=== PATIENT | male | born 1980 | race Hispanic/Latino ===

== ENCOUNTER 2017-07-20 13:39 | Inpatient (IN) | payer BC ==
[2017-07-20] MEDS ORDERED: Sodium Chloride 0.9% 1,000 ML IV ONE ×5 (14:21→23:15)
[2017-07-20] MEDS ORDERED: Sodium Chloride 0.9% 1,000 ML ONE ×2 (14:28→16:52)
[2017-07-20] MEDS ORDERED: Morphine 4 MG/ML VIAL ONE (14:29)
[2017-07-20 14:59] LABS: BASO % 0.3 % (0.0-2.0); EOS % 0.2 % (0.0-4.0); LYMPH # 0.8 K/uL (1.0-4.3); LYMPH % 5.9 % (20.0-40.0); MEAN CELL VOLUME 90.5 fL (80.0-94.0); MEAN CORPUSCULAR HGB CONC 35.4 g/dL (33.0-37.0); MEAN PLATELET VOLUME 7.9 fL (7.2-11.7); MONO # 1.2 K/uL (0.0-0.8); MONO % 8.7 % (0.0-10.0); NEUT # 11.6 K/uL (1.8-7.0); NEUT % 84.9 % (50.0-75.0); PLATELET COUNT 257 K/uL (130-400); RBC 4.69 Mil/uL (4.40-5.90); RED CELL DISTRIBUTION WIDTH 13.5 % (11.5-14.5); WHITE BLOOD COUNT 13.7 K/uL (4.8-10.8)
[2017-07-20 15:12] LABS: ALB/GLOB RATIO 1.4 (1.0-2.1); ALBUMIN 4.5 g/dL (3.5-5.0); ALT/SGPT 22 U/L (21-72); AST/SGOT 19 U/L (17-59); BLOOD UREA NITROGEN 9 mg/dL (9-20); CALCIUM 9.5 mg/dl (8.6-10.4); GFR AFRICAN-AMERICAN > 60; GFR NON-AFRICAN AMERICAN > 60; LIPASE 35 U/L (23-300)
[2017-07-20 15:20] LABS: LYMPHOCYTE 7 % (20-40); MONOCYTE 11 % (0-10); NEUTROPHIL 82 % (50-75); TOTAL CELLS COUNTED 100
[2017-07-20 15:21] LABS: PLATELET ESTIMATE NORMAL (NORMAL)
[2017-07-20] MEDS ORDERED: Iodixanol 320 MG/ML 100 ML BOTTLE IV ONE ×2 (15:23→17:20)
--- NOTE | 2017-07-20 15:57 | C.PDOC ---
History Of Present Illness 37-year-old male presents to the emergency department with complaints of nausea , associated with non-bloody/non-bilious vomiting and diarrhea since . Patient is also complaining of chills and pressure in his pelvis when he urinates. He denies any unusual food intake, sick contacts, chest pain, shortness of breath, dysuria/hematuria, or any other associated symptoms. Last food intake was night, and today he had some ice chips but vomited them in ED. Time Seen by Provider: 07/20/17 13:55 Chief Complaint (Nursing): Abdominal Pain History Per: Patient History/Exam Limitations: no limitations Current Symptoms Are (Timing): Still Present Severity: Moderate Location Of Pain/Discomfort: RLQ, Periumbilical (right ) Radiation Of Pain To:: Back Quality Of Discomfort: "Pain" Associated Symptoms: Chills, Nausea, Vomiting, Diarrhea Past Medical History Reviewed: Historical Data, Nursing Documentation, Vital Signs Vital Signs: Last Vital Signs Temp 97.5 F L 07/21/17 14:50 Pulse 112 H 07/21/17 14:50 Resp 22 07/21/17 14:50 BP 134/76 07/21/17 14:50 Pulse Ox 94 L 07/21/17 14:50 - Medical History PMH: No Chronic Diseases Other PMH: right foot fx Family History: States: No Known Family Hx - Social History Hx Alcohol Use: Yes Hx Substance Use: Yes - Immunization History Hx Tetanus Toxoid Vaccination: No Hx Influenza Vaccination: No Hx Pneumococcal Vaccination: No Review Of Systems Constitutional: Positive for: Chills. Negative for: Fever Cardiovascular: Negative for: Chest Pain, Palpitations Respiratory: Negative for: Shortness of Breath Gastrointestinal: Positive for: Nausea, Vomiting, Abdominal Pain, Diarrhea Genitourinary: Negative for: Dysuria, Hematuria Musculoskeletal: Negative for: Back Pain Skin: Negative for: Rash Physical Exam - Physical Exam Appears: Well, Non-toxic, In Acute Distress (uncomfortable appearing ) Skin: Normal Color, Warm, Dry, No Rash Head: Normacephalic Eye(s): bilateral: Normal Inspection Oral Mucosa: Moist Chest: Symmetrical Cardiovascular: Rhythm Regular, No Murmur Respiratory: Normal Breath Sounds, No Rales, No Rhonchi, No Wheezing Gastrointestinal/Abdominal: Bowel Sounds, Soft, Tenderness (right periumbilical and RLQ TTP), Guarding, No Rebound, Other ((-) Nuñez's) Back: No CVA Tenderness Extremity: Normal ROM, No Deformity, No Swelling Neurological/Psych: Oriented x3 ED Course And Treatment - Laboratory Results Result Diagrams: 07/21/17 06:11 07/21/17 06:12 ECG: Interpreted By Me, Viewed By Me (sinus tachycardia 102 bpm, normal axis, no acute ST/T wave changes) O2 Sat by Pulse Oximetry: 99 (RA) Pulse Ox Interpretation: Normal - Radiology CXR: Interpreted by Me, Viewed By Me CXR Interpretation: Yes: No Acute Disease. No: Infiltrates - CT Scan/US ct abd/pelvis Other Rad Studies (CT/US): Read By Radiologist, Radiology Report Reviewed CT/US Interpretation: Accession No. : [id number]. Patient Name / ID : JAYASHREE SANDERSON / [id number]. Exam Date : 07/20/2017 15:50:37 ( Approved ). Study Comment : Sex / Age : M / 37Y. Creator : charlee chairez. Dictator : Emelyn Phillips MD. Radioisotope Technician : Tugboat Operator : Emelyn Phillips MD. Approver2 : Report Date : 07/20/2017 15:59:06. My Comment : . PROCEDURE: CT Abdomen and Pelvis with contrast. HISTORY: rlq pain,nausea/ vomiting/diarrhea. COMPARISON: None. TECHNIQUE: Contrast dose: 100 mL Visipaque 320. Axial and reformatted coronal and sagittal CT images holes the abdomen and pelvis were obtained after IV and PO contrast. Radiation dose: Total exam DLP = 1562.6 mGy-cm. This CT exam was performed using one or more of the following dose reduction techniques: Automated exposure control, adjustment of the mA and/or kV according to patient size, and/or use of iterative reconstruction technique. FINDINGS: LOWER THORAX: Unremarkable. LIVER: Unremarkable. No gross lesion or ductal dilatation. GALLBLADDER AND BILE DUCTS: Unremarkable. PANCREAS: Unremarkable. No gross lesion or ductal dilatation. SPLEEN: Unremarkable. ADRENALS: Unremarkable. No mass. KIDNEYS AND URETERS: There is 6 millimeter nonobstructing calculus at the upper pole of the right kidney. No evidence of hydronephrosis. The kidneys enhance symmetrically. VASCULATURE: Unremarkable. No aortic aneurysm. BOWEL: Unremarkable. No obstruction. No gross mural thickening. APPENDIX: There are inflammatory changes surrounding the dilated appendix suggestive of acute appendicitis. There is adjacent trace fluid seen. No evidence of discrete abscess formation. PERITONEUM: Unremarkable. No free fluid. No free air. LYMPH NODES: Mildly enlarged mesenteric lymph node noted at the right lower abdomen. BLADDER: Unremarkable. REPRODUCTIVE: Unremarkable. BONES: No acute fracture. OTHER FINDINGS: None. IMPRESSION: Findings consistent with acute appendicitis. No evidence of abscess formation. Otherwise no evidence of acute pathology in the abdomen and pelvis. 6 millimeter nonobstructing calculus at the upper pole of the right kidney. Progress Note: Blood work, CT Abd/Pel, UA ordered and reviewed. Patient given IVNS bolus, IV morphine, IV zofran, IV protonix. CT scan (+) for acute appendicitis - IV zosyn + preop studies ordered. 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 residential builder made aware. Disposition - Disposition Disposition: HOSPITALIZED Disposition Time: 16:54 Condition: STABLE - Clinical Impression Clinical Impression: Acute appendicitis - Scribe Statement The provider has reviewed the documentation as recorded by the Scribe (Eugene Braga) All medical record entries made by the Scribe were at my direction and personally dictated by me. I have reviewed the chart and agree that the record accurately reflects my personal performance of the history, physical exam, medical decision making, and the department course for this patient. I have also personally directed, reviewed, and agree with the discharge instructions and disposition. Decision To Admit - Pt Status Changed To: Hospital Disposition Of: Inpatient - Admit Certification Admit to Inpatient:: After my assessment, the patient will require hospitalization for at least two midnights. This is because of the severity of symptoms shown, intensity of services needed, and/or the medical risk in this patient being treated as an outpatient. - InPatient: Physician Admission Certification:: see notes - . Bed Request Type: Regular Admitting Physician: Carolyn Hernandez Patient Diagnosis: Acute appendicitis
--- NOTE | 2017-07-20 16:28 | CT ---
PROCEDURE: CT Abdomen and Pelvis with contrast HISTORY: rlq pain,nausea/vomiting/diarrhea COMPARISON: None. TECHNIQUE: Contrast dose: 100 mL Visipaque 320. Axial and reformatted coronal and sagittal CT images holes the abdomen and pelvis were obtained after IV and PO contrast. Radiation dose: Total exam DLP = 1562.6 mGy-cm. This CT exam was performed using one or more of the following dose reduction techniques: Automated exposure control, adjustment of the mA and/or kV according to patient size, and/or use of iterative reconstruction technique. FINDINGS: LOWER THORAX: Unremarkable. LIVER: Unremarkable. No gross lesion or ductal dilatation. GALLBLADDER AND BILE DUCTS: Unremarkable. PANCREAS: Unremarkable. No gross lesion or ductal dilatation. SPLEEN: Unremarkable. ADRENALS: Unremarkable. No mass. KIDNEYS AND URETERS: There is 6 millimeter nonobstructing calculus at the upper pole of the right kidney. No evidence of hydronephrosis. The kidneys enhance symmetrically. VASCULATURE: Unremarkable. No aortic aneurysm. BOWEL: Unremarkable. No obstruction. No gross mural thickening. APPENDIX: There are inflammatory changes surrounding the dilated appendix suggestive of acute appendicitis. There is adjacent trace fluid seen. No evidence of discrete abscess formation. PERITONEUM: Unremarkable. No free fluid. No free air. LYMPH NODES: Mildly enlarged mesenteric lymph node noted at the right lower abdomen BLADDER: Unremarkable. REPRODUCTIVE: Unremarkable. BONES: No acute fracture. OTHER FINDINGS: None. IMPRESSION: Findings consistent with acute appendicitis. No evidence of abscess formation. Otherwise no evidence of acute pathology in the abdomen and pelvis. 6 millimeter nonobstructing calculus at the upper pole of the right kidney.
[2017-07-20] MEDS ORDERED: Piperacillin/Tazobact 3.375 gm 100 ML IV STA (16:46)
[2017-07-20] MEDS ORDERED: Piperacillin/Tazobact 3.375 gm 100 ML IVPB ONE (16:52)
--- NOTE | 2017-07-20 17:37 | CP.PCM.CON ---
History of Present Illness - History of Present Illness History of Present Illness: SURGERY CONSULT NOTE FOR DR. NUNEZ 37M presents to ER with abdominal that has been on going since . Patient states he has never had pain like this before. He admits to nausea and vomiting, states he has not been able to tolerated diet since . He denies fevers or chills. He also admits to diarrhea on . PMH: denies PSH: denies Social: quit 4 months ago, social alcohol use, denies illicit drugs Allergies: NKDA Past Patient History - Past Social History Smoking Status: Former Smoker - PSYCHIATRIC Hx Substance Use: Yes - SURGICAL HISTORY Hx Surgeries: No Meds Allergies/Adverse Reactions: Allergies Allergy/AdvReac Type Severity Reaction Status Date / Time No Known Allergies Allergy Verified 07/20/17 13:54 Results - Vital Signs Recent Vital Signs: Last Vital Signs Temp 98.3 F 07/20/17 15:07 Pulse 98 H 07/20/17 15:07 Resp 18 07/20/17 15:07 BP 94/64 L 07/20/17 15:07 Pulse Ox 99 07/20/17 17:03 - Labs Result Diagrams: 07/20/17 14:54 07/20/17 14:54 Labs: Laboratory Results - last 24 hr 07/20/17 07/20/17 14:54 14:54 WBC 13.7 H RBC 4.69 Hgb 15.0 Hct 42.4 MCV 90.5 MCH 32.0 H MCHC 35.4 RDW 13.5 Plt Count 257 MPV 7.9 Neut % (Auto) 84.9 H Lymph % (Auto) 5.9 L [place] % (Auto) 8.7 Eos % (Auto) 0.2 Baso % (Auto) 0.3 Neut # (Auto) 11.6 H Lymph # (Auto) 0.8 L [place] # (Auto) 1.2 H Eos # (Auto) 0.0 Baso # (Auto) 0.0 Neutrophils % (Manual) 82 H Lymphocytes % (Manual) 7 L Monocytes % (Manual) 11 H Platelet Estimate Normal RBC Morphology Normal Sodium 136 Potassium 3.8 Chloride 92 L Carbon Dioxide 30 Anion Gap 18 BUN 9 Creatinine 1.1 Est GFR ( Amer) > 60 Est GFR (Non-Af Amer) > 60 Random Glucose 128 H Calcium 9.5 Total Bilirubin 2.5 H AST 19 ALT 22 Alkaline Phosphatase 66 Total Protein 7.8 Albumin 4.5 Globulin 3.3 Albumin/Globulin Ratio 1.4 Lipase 35
--- NOTE | 2017-07-20 17:40 | CP.PCM.HP ---
History of Present Illness - History of Present Illness History of Present Illness: SURGERY NOTE FOR DR. NUNEZ 37M presents to ER with abdominal that has been on going since . Patient states he has never had pain like this before. He admits to nausea and vomiting, states he has not been able to tolerated diet since . He denies fevers or chills. He also admits to diarrhea on . PMH: denies PSH: denies Social: quit 4 months ago, social alcohol use, denies illicit drugs Allergies: NKDA Present on Admission - Present on Admission Any Indicators Present on Admission: Yes Past Patient History - Past Social History Smoking Status: Former Smoker - PSYCHIATRIC Hx Substance Use: Yes - SURGICAL HISTORY Hx Surgeries: No Meds Allergies/Adverse Reactions: Allergies Allergy/AdvReac Type Severity Reaction Status Date / Time No Known Allergies Allergy Verified 07/20/17 13:54 Physical Exam - Constitutional Appears: Non-toxic, No Acute Distress Additional comments: uncomfortable due to pain - Head Exam Head Exam: ATRAUMATIC - Eye Exam Eye Exam: EOMI, PERRL - ENT Exam ENT Exam: Mucous Membranes Moist - Respiratory Exam Respiratory Exam: Clear to Auscultation Bilateral, NORMAL BREATHING PATTERN - Cardiovascular Exam Cardiovascular Exam: REGULAR RHYTHM, +S1, +S2 - GI/Abdominal Exam GI & Abdominal Exam: Soft, Tenderness. absent: Distended, Firm, Guarding, Rebound, Rigid Additional comments: tenderness in RLQ - Extremities Exam Extremities exam: Negative for: pedal edema, tenderness - Neurological Exam Neurological exam: Alert, Oriented x3 - Psychiatric Exam Psychiatric exam: Normal Affect, Normal Mood - Skin Skin Exam: Dry, Intact, Normal Color, Warm Results - Vital Signs Recent Vital Signs: Last Vital Signs Temp 98.3 F 07/20/17 15:07 Pulse 98 H 07/20/17 15:07 Resp 18 07/20/17 15:07 BP 94/64 L 07/20/17 15:07 Pulse Ox 99 07/20/17 17:03 - Labs Result Diagrams: 07/20/17 14:54 07/20/17 14:54 Labs: Laboratory Results - last 24 hr 07/20/17 07/20/17 14:54 14:54 WBC 13.7 H RBC 4.69 Hgb 15.0 Hct 42.4 MCV 90.5 MCH 32.0 H MCHC 35.4 RDW 13.5 Plt Count 257 MPV 7.9 Neut % (Auto) 84.9 H Lymph % (Auto) 5.9 L [place] % (Auto) 8.7 Eos % (Auto) 0.2 Baso % (Auto) 0.3 Neut # (Auto) 11.6 H Lymph # (Auto) 0.8 L [place] # (Auto) 1.2 H Eos # (Auto) 0.0 Baso # (Auto) 0.0 Neutrophils % (Manual) 82 H Lymphocytes % (Manual) 7 L Monocytes % (Manual) 11 H Platelet Estimate Normal RBC Morphology Normal Sodium 136 Potassium 3.8 Chloride 92 L Carbon Dioxide 30 Anion Gap 18 BUN 9 Creatinine 1.1 Est GFR ( Amer) > 60 Est GFR (Non-Af Amer) > 60 Random Glucose 128 H Calcium 9.5 Total Bilirubin 2.5 H AST 19 ALT 22 Alkaline Phosphatase 66 Total Protein 7.8 Albumin 4.5 Globulin 3.3 Albumin/Globulin Ratio 1.4 Lipase 35 Assessment & Plan - Assessment and Plan (Free Text) Assessment: 37M presents with appendicitis as seen on CT scan Plan: - NPO, IVF - Pain control - anti-emetic - antibiotics - Booked and consented for appendectomy Discussed with Dr. David Faulkner, PGY2
[2017-07-20 17:41] LABS: INR 1.4; PROTHROMBIN TIME 15.2 SECONDS (9.7-12.2)
[2017-07-20 18:31] LABS: SQUAMOUS EPITHIAL 1 /hpf (0-5); URINE BACTERIA RARE (<OCC); URINE BILIRUBIN NEGATIVE (NEGATIVE); URINE BLOOD 1+ (NEGATIVE); URINE CLARITY Clear (Clear); URINE COLOR Amber (YELLOW); URINE GLUCOSE (UA) NORMAL (Normal); URINE LEUKOCYTE ESTERASE NEG Leu/uL (Negative); URINE PROTEIN 1+ mg/dL (NEGATIVE)
[2017-07-20] MEDS: Sodium Chloride 0.9% 1,000 ML IV SCH (18:47)
[2017-07-20] MEDS: Piperacillin/Tazobact 3.375 GM in Sodium Chloride 100 ML IVPB SCH ×2 (18:48→23:45)
[2017-07-20] MEDS ORDERED: HYDROmorphone 0.5 mg/0.5 ml ISec IVP PRN (20:52)
--- NOTE | 2017-07-20 20:55 | PCM.SURG1 ---
Surgeon's Initial Post Op Note - Surgeon's Notes Surgeon: David Front Office Secretary: Kaushik Pre-Operative Diagnosis: Acute appendicitis Operative Findings: gangrenous rupture appendix Post-Operative Diagnosis: Gangrenous ruptured acute appendicitis Operation Performed: Laparoscopic appendectomy Specimen/Specimens Removed: appendix Estimated Blood Loss: EBL {In ML}: 20 Date of Surgery/Procedure: 07/20/17 Time of Surgery/Procedure: 19:00
[2017-07-20 22:04] LABS: HEMOGLOBIN 11.5 g/dL (12.0-18.0); MEAN CELL VOLUME 91.6 fL (80.0-94.0); MEAN CORPUSCULAR HEMOGLOBIN 30.8 pg (27.0-31.0); MEAN CORPUSCULAR HGB CONC 33.6 g/dL (33.0-37.0); MEAN PLATELET VOLUME 8.1 fL (7.2-11.7); RBC 3.74 Mil/uL (4.40-5.90); RED CELL DISTRIBUTION WIDTH 13.4 % (11.5-14.5); WHITE BLOOD COUNT 14.5 K/uL (4.8-10.8)
[2017-07-20] MEDS ORDERED: Albumin Human 25% (12.5 gm/50 ml) IV ONE (23:29)
[2017-07-21] MEDS ORDERED: Propofol 10 mg/ml Inj (20 ML) ONE (00:12)
[2017-07-21] MEDS ORDERED: Succinylcholine Chloride 20 mg/ml Syr (5 ml) IV ONE (00:12)
[2017-07-21] MEDS ORDERED: Midazolam 2 MG/2 ML VIAL ONE (00:12)
[2017-07-21] MEDS ORDERED: Rocuronium 10 mg/ml (5 ml) ONE (00:14)
--- NOTE | 2017-07-21 00:18 | CP.PCM.PN ---
Subjective - Date & Time of Evaluation Date of Evaluation: 07/21/17 Time of Evaluation: 00:16 - Subjective Subjective: SURGERY NOTE 37M s/p laperaoscopic appendectomy. Currently in PACU. Patient is pale, diaphoretic and states he feels cold. Drain has been having bright red blood output up to 200-300cc. Hypotensive lowest 50s systolic. Patient received 2L bolus without much improvement. Currently receiving 2 units of pRBCs. Plan to return to OR now for diag lap/ex-lap. Family notified. Objective - Vital Signs/Intake and Output Vital Signs (last 24 hours): Temp Pulse Resp BP Pulse Ox 97.2 F L 87 15 90/56 L 100 07/20/17 23:45 07/20/17 23:45 07/20/17 23:45 07/20/17 23:45 07/20/17 23:45 Intake and Output: 07/20/17 07/21/17 18:59 06:59 Intake Total 1350 Output Total 150 Balance 1200 - Medications Medications: Current Medications Hydromorphone HCl (Dilaudid) 1 mg IVP Q4H PRN PRN Reason: Pain, severe (8-10) Piperacillin Sod/Tazobactam (Sod 3.375 gm/ Sodium Chloride) 100 mls @ 200 mls/ hr IVPB Q6H PARESH PRN Reason: Protocol Last Admin: 07/20/17 18:48 Dose: Not Given Sodium Chloride (Sodium Chloride 0.9%) 1,000 mls @ 150 mls/hr IV .Q6H40M [facility] Last Admin: 07/20/17 18:47 Dose: 150 mls/hr Ondansetron HCl (Zofran Inj) 4 mg IVP Q4 PRN PRN Reason: Nausea/Vomiting - Labs Labs: 07/20/17 22:00 07/20/17 14:54 PT 15.2 SECONDS (9.7-12.2) H 07/20/17 17:29 INR 1.4 07/20/17 17:29 APTT 29 SECONDS (21-34) 07/20/17 17:29
[2017-07-21] MEDS ORDERED: Phenylephrine 10 mg/ml Inj ONE (00:46)
[2017-07-21] MEDS ORDERED: Neostigmine Methylsulfate 3mg/3ml Syringe IV ONE (01:37)
--- NOTE | 2017-07-21 02:26 | CP.PCM.CON ---
History of Present Illness - History of Present Illness History of Present Illness: 37 M with c/o 3 day abd pain came to ER found to have acute appendicitis, taken to OR for lap appendicectomy, had post op bleeding, noticed form the KAMAR about 250m, with abd distension, hypotension. Patient was started PRBC x2 units, 2 lit ivf, albumin 25g, cristobal inserted and taken to the OR. Post op d/w surgery team, about 500ml of old blood noticed no fresh bleeding. VS remained stable in OR, urine scant sulaiman color but maintained vital signs. Patient lethargic but easily arousable. PMH as above PSH none Allergies NKDA Social history quit smoking, social drinking, denies any illicit durgs Family history not contributory Meds none Review of Systems - Review of Systems All systems: reviewed and no additional remarkable complaints except (HPI) Past Patient History - Past Social History Smoking Status: Former Smoker - PSYCHIATRIC Hx Substance Use: Yes - SURGICAL HISTORY Hx Surgeries: No Meds Allergies/Adverse Reactions: Allergies Allergy/AdvReac Type Severity Reaction Status Date / Time No Known Allergies Allergy Verified 07/20/17 13:54 - Medications Medications: Current Medications Hydromorphone HCl (Dilaudid) 1 mg IVP Q4H PRN PRN Reason: Pain, severe (8-10) Piperacillin Sod/Tazobactam (Sod 3.375 gm/ Sodium Chloride) 100 mls @ 200 mls/ hr IVPB Q6H PARESH PRN Reason: Protocol Last Admin: 07/20/17 18:48 Dose: Not Given Sodium Chloride (Sodium Chloride 0.9%) 1,000 mls @ 150 mls/hr IV .Q6H40M [facility] Last Admin: 07/20/17 18:47 Dose: 150 mls/hr Ondansetron HCl (Zofran Inj) 4 mg IVP Q4 PRN PRN Reason: Nausea/Vomiting Physical Exam - Additional Findings Additional findings: * Obese * HEENT YOKASTA * Neck short * Chest a/e/bl * PA obese, soft, has binder, port sites taped * Ext no edema * Skin normal turor * 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, 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 Results - Vital Signs Recent Vital Signs: Last Vital Signs Temp 97.2 F L 07/20/17 23:45 Pulse 91 H 07/21/17 00:00 Resp 11 L 07/21/17 00:00 BP 100/48 L 07/21/17 00:00 Pulse Ox 100 07/21/17 00:00 - Labs Result Diagrams: 07/20/17 22:00 07/20/17 14:54 Labs: Laboratory Results - last 24 hr 07/20/17 07/20/17 07/20/17 14:54 14:54 17:29 WBC 13.7 H RBC 4.69 Hgb 15.0 Hct 42.4 MCV 90.5 MCH 32.0 H MCHC 35.4 RDW 13.5 Plt Count 257 MPV 7.9 Neut % (Auto) 84.9 H Lymph % (Auto) 5.9 L [place] % (Auto) 8.7 Eos % (Auto) 0.2 Baso % (Auto) 0.3 Neut # (Auto) 11.6 H Lymph # (Auto) 0.8 L [place] # (Auto) 1.2 H Eos # (Auto) 0.0 Baso # (Auto) 0.0 Neutrophils % (Manual) 82 H Lymphocytes % (Manual) 7 L Monocytes % (Manual) 11 H Platelet Estimate Normal RBC Morphology Normal PT 15.2 H INR 1.4 APTT 29 Sodium 136 Potassium 3.8 Chloride 92 L Carbon Dioxide 30 Anion Gap 18 BUN 9 Creatinine 1.1 Est GFR ( Amer) > 60 Est GFR (Non-Af Amer) > 60 Random Glucose 128 H Calcium 9.5 Total Bilirubin 2.5 H AST 19 ALT 22 Alkaline Phosphatase 66 Total Protein 7.8 Albumin 4.5 Globulin 3.3 Albumin/Globulin Ratio 1.4 Lipase 35 Urine Color Urine Clarity Urine pH Ur Specific [place] Urine Protein Urine Glucose (UA) Urine Ketones Urine Blood Urine Nitrate Urine Bilirubin Urine Urobilinogen Ur Leukocyte Esterase Urine WBC (Auto) Urine RBC (Auto) Ur Squamous Epith Cells Urine Bacteria Blood Type Blood Type Confirm Antibody Screen 07/20/17 07/20/17 07/20/17 17:29 18:13 22:00 WBC 14.5 H RBC 3.74 L Hgb 11.5 L D Hct 34.2 L MCV 91.6 MCH 30.8 MCHC 33.6 RDW 13.4 Plt Count 259 MPV 8.1 Neut % (Auto) Lymph % (Auto) [place] % (Auto) Eos % (Auto) Baso % (Auto) Neut # (Auto) Lymph # (Auto) [place] # (Auto) Eos # (Auto) Baso # (Auto) Neutrophils % (Manual) Lymphocytes % (Manual) Monocytes % (Manual) Platelet Estimate RBC Morphology PT INR APTT Sodium Potassium Chloride Carbon Dioxide Anion Gap BUN Creatinine Est GFR ( Amer) Est GFR (Non-Af Amer) Random Glucose Calcium Total Bilirubin AST ALT Alkaline Phosphatase Total Protein Albumin Globulin Albumin/Globulin Ratio Lipase Urine Color [place] Urine Clarity Clear Urine pH 6.0 Ur Specific [place] 1.010 Urine Protein 1+ H Urine Glucose (UA) Normal Urine Ketones Negative Urine Blood 1+ H Urine Nitrate Negative Urine Bilirubin Negative Urine Urobilinogen 4.0 Ur Leukocyte Esterase Neg Urine WBC (Auto) 5 Urine RBC (Auto) 16 H Ur Squamous Epith Cells 1 Urine Bacteria Rare Blood Type A POSITIVE Blood Type Confirm A POSITIVE Antibody Screen Negative Assessment & Plan - Assessment and Plan (Free Text) Assessment: * Urgent surg for ruptured appendicitis, complicated with post op bleeding, with revision ex lap about 500ml blood inside, and 250 form KAMAR. Transfused 2 units prbc, albumin 2 lit ivf, still pending 2 units ffp and will have maintenance fluid * Monitor urine output * SCD for DVT prophylaxis * PPI * Abx due to ruptured appendix * f/u labs Plan: As above
--- NOTE | 2017-07-21 02:31 | PCM.SURG1 ---
Surgeon's Initial Post Op Note - Surgeon's Notes Surgeon: David Senior Project Manager Engineering: [email or web address] [id number] Pre-Operative Diagnosis: Post-op bleed Operative Findings: Hemoperitoneum Post-Operative Diagnosis: same Operation Performed: Diagnostic laparoscopy, evacuation of hematoma Specimen/Specimens Removed: blood Estimated Blood Loss: EBL {In ML}: 500 Date of Surgery/Procedure: 07/21/17 Time of Surgery/Procedure: 00:05
[2017-07-21] MEDS: Sodium Chloride 0.9% 1,000 ML IV SCH ×4 (03:00→20:29)
[2017-07-21] MEDS: Piperacillin/Tazobact 3.375 GM in Sodium Chloride 100 ML IVPB SCH ×4 (06:00→22:57)
[2017-07-21] MEDS: HYDROmorphone 1 mg/ml ISec IVP PRN ×4 (06:23→21:27)
[2017-07-21 06:33] LABS: BASO % 0.2 % (0.0-2.0); LYMPH # 0.4 K/uL (1.0-4.3); LYMPH % 3.8 % (20.0-40.0); MEAN CELL VOLUME 90.8 fL (80.0-94.0); MEAN CORPUSCULAR HGB CONC 34.2 g/dL (33.0-37.0); MEAN PLATELET VOLUME 8.3 fL (7.2-11.7); MONO # 1.2 K/uL (0.0-0.8); MONO % 11.2 % (0.0-10.0); NEUT % 84.8 % (50.0-75.0); PLATELET COUNT 201 K/uL (130-400); RBC 3.54 Mil/uL (4.40-5.90); RED CELL DISTRIBUTION WIDTH 13.9 % (11.5-14.5); WHITE BLOOD COUNT 10.6 K/uL (4.8-10.8)
[2017-07-21 06:35] LABS: ALB/GLOB RATIO 1.2 (1.0-2.1); ALBUMIN 3.2 g/dL (3.5-5.0); ALT/SGPT 25 U/L (21-72); AST/SGOT 17 U/L (17-59); BLOOD UREA NITROGEN 12 mg/dL (9-20); CALCIUM 7.6 mg/dl (8.6-10.4); GFR AFRICAN-AMERICAN > 60; GFR NON-AFRICAN AMERICAN > 60
--- NOTE | 2017-07-21 08:02 | RAD ---
Chest x-ray single frontal view History: Preoperative evaluation. Comparison: None available. Findings: Mild venous congestion. Elevated right hemidiaphragm. Mammilated right hemidiaphragm. Tortuous aorta. Degenerative changes in the spine. Impression: Mild venous congestion. Elevated right hemidiaphragm. Mammilated right hemidiaphragm. Tortuous aorta.
[2017-07-21 08:09] LABS: BANDS 5 % (0-2); LYMPHOCYTE 2 % (20-40); MONOCYTE 7 % (0-10); NEUTROPHIL 86 % (50-75); PLATELET ESTIMATE NORMAL (NORMAL); TOTAL CELLS COUNTED 100
--- NOTE | 2017-07-21 08:13 | CP.CCUPN ---
<Rula Stewart - Last Filed: 07/21/17 11:07> CCU Subjective - Physician Review Subjective (Free Text): Patient was seen and examined at bedside. Patient reports his pain is still present and he feels very anxious. Denied passing flatus or BM. Diet advanced to FLD. CCU Objective - Vital Signs / Intake & Output Vital Signs (Last 4 hours): Vital Signs Pulse Resp BP Pulse Ox 07/21/17 06:00 100 H 22 106/71 100 07/21/17 05:30 102 H 22 120/82 99 07/21/17 05:00 100 H 22 105/87 99 07/21/17 04:30 100 H 22 108/65 98 Intake and Output (Last 8hrs): Intake & Output 07/20/17 07/21/17 07/21/17 22:59 06:59 14:59 Intake Total 2000 1940 Output Total 800 400 Balance 1200 1540 Weight 281 lb 6 oz Intake: IV 2000 550 Intake, IV Amount 550 Right Hand 550 Oral 240 Blood Product 600 Output: Drainage 800 Urine 400 Other: Voiding Method Indwelling Catheter - Physical Exam Head: Positive for: Atraumatic, Normocephalic Pupils: Positive for: PERRL Extroacular Muscles: Positive for: EOMI Conjunctiva: Positive for: Normal Mouth: Positive for: Dry Respiratory/Chest: Positive for: Clear to Auscultation, Decreased Breath Sounds Cardiovascular: Positive for: Tachycardic Abdomen: Positive for: Tenderness, Distention, Other (abdominal binder in place ) Upper Extremity: Positive for: Normal Inspection, NORMAL PULSES, Neurovascularly Intact, Capillary Refill < 2s Lower Extremity: Positive for: Normal Inspection, Neurovascularly Intact, Capillary Refill < 2 s Neurological: Positive for: GCS=15, CN II-XII Intact Skin: Positive for: Warm, Dry, Normal Color Psychiatric: Positive for: Alert, Oriented x 3, Normal Insight - Medications Active Medications: Active Medications Generic Name Dose Route Start Last Admin Trade Name Freq PRN Reason Stop Dose Admin Hydromorphone HCl 1 mg 07/20/17 17:41 07/21/17 06:23 Dilaudid IVP 1 mg Q4H PRN Administration Pain, severe (8-10) Piperacillin Sod/Tazobactam 100 mls @ 200 mls/hr 07/20/17 17:45 07/21/17 06: 00 Sod 3.375 gm/ Sodium Chloride IVPB 200 mls/hr Q6H PARESH Administration Protocol Sodium Chloride 1,000 mls @ 150 mls/hr 07/20/17 17:45 07/21/17 03:00 Sodium Chloride 0.9% IV 150 mls/hr .Q6H40M PARESH Administration Magnesium Oxide 400 mg 07/21/17 10:00 Mag-Ox PO 07/21/17 18:01 BID PARESH Ondansetron HCl 4 mg 07/20/17 17:41 Zofran Inj IVP Q4 PRN Nausea/Vomiting Pantoprazole Sodium 40 mg 07/21/17 10:00 Protonix Inj IVP DAILY PARESH - Patient Studies Lab Studies: Lab Studies 07/21/17 07/21/17 07/21/17 Range/Units 06:12 06:12 06:11 WBC 10.6 (4.8-10.8) K/uL RBC 3.54 L (4.40-5.90) Mil/uL Hgb 11.0 L (12.0-18.0) g/dL Hct 32.2 L (35.0-51.0) % MCV 90.8 (80.0-94.0) fL MCH 31.0 (27.0-31.0) pg MCHC 34.2 (33.0-37.0) g/dL RDW 13.9 (11.5-14.5) % Plt Count 201 (130-400) K/uL MPV 8.3 (7.2-11.7) fL Neut % (Auto) 84.8 H (50.0-75.0) % Lymph % (Auto) 3.8 L (20.0-40.0) % [place] % (Auto) 11.2 H (0.0-10.0) % Eos % (Auto) 0.0 (0.0-4.0) % Baso % (Auto) 0.2 (0.0-2.0) % Neut # (Auto) 9.0 H (1.8-7.0) K/uL Lymph # (Auto) 0.4 L (1.0-4.3) K/uL [place] # (Auto) 1.2 H (0.0-0.8) K/uL Eos # (Auto) 0.0 (0.0-0.7) K/uL Baso # (Auto) 0.0 (0.0-0.2) K/uL Neutrophils % (Manual) 86 H (50-75) % Band Neutrophils % 5 H (0-2) % Lymphocytes % (Manual) 2 L (20-40) % Monocytes % (Manual) 7 (0-10) % Platelet Estimate Normal (NORMAL) RBC Morphology Normal PT (9.7-12.2) SECONDS INR APTT (21-34) SECONDS Sodium 135 (132-148) mmol/L Potassium 4.0 (3.6-5.2) mmol/L Chloride 99 (98-107) mmol/L Carbon Dioxide 25 (22-30) mmol/L Anion Gap 15 (10-20) BUN 12 (9-20) mg/dL Creatinine 1.0 (0.8-1.5) mg/dL Est GFR ( Amer) > 60 Est GFR (Non-Af Amer) > 60 Random Glucose 167 H (75-110) mg/dL Calcium 7.6 L (8.6-10.4) mg/dl Phosphorus 3.0 (2.5-4.5) mg/dL Magnesium 1.5 L (1.6-2.3) mg/dL Total Bilirubin 7.4 H (0.2-1.3) mg/dL AST 17 (17-59) U/L ALT 25 (21-72) U/L Alkaline Phosphatase 40 (38-126) U/L Total Protein 6.0 L (6.3-8.3) g/dL Albumin 3.2 L D (3.5-5.0) g/dL Globulin 2.7 (2.2-3.9) gm/dL Albumin/Globulin Ratio 1.2 (1.0-2.1) Lipase (23-300) U/L Urine Color (YELLOW) Urine Clarity (Clear) Urine pH (5.0-8.0) Ur Specific [place] (1.003-1.030) Urine Protein (NEGATIVE) mg/dL Urine Glucose (UA) (Normal) mg/dL Urine Ketones (NEGATIVE) mg/dL Urine Blood (NEGATIVE) Urine Nitrate (NEGATIVE) Urine Bilirubin (NEGATIVE) Urine Urobilinogen (0.2-1.0) mg/dL Ur Leukocyte Esterase (Negative) Tabatha/uL Urine WBC (Auto) (0-5) /hpf Urine RBC (Auto) (0-3) /hpf Ur Squamous Epith Cells (0-5) /hpf Urine Bacteria (<OCC) Blood Type Blood Type Confirm Antibody Screen 07/20/17 07/20/17 07/20/17 Range/Units 22:00 18:13 17:29 WBC 14.5 H (4.8-10.8) K/uL RBC 3.74 L (4.40-5.90) Mil/uL Hgb 11.5 L D (12.0-18.0) g/dL Hct 34.2 L (35.0-51.0) % MCV 91.6 (80.0-94.0) fL MCH 30.8 (27.0-31.0) pg MCHC 33.6 (33.0-37.0) g/dL RDW 13.4 (11.5-14.5) % Plt Count 259 (130-400) K/uL MPV 8.1 (7.2-11.7) fL Neut % (Auto) (50.0-75.0) % Lymph % (Auto) (20.0-40.0) % [place] % (Auto) (0.0-10.0) % Eos % (Auto) (0.0-4.0) % Baso % (Auto) (0.0-2.0) % Neut # (Auto) (1.8-7.0) K/uL Lymph # (Auto) (1.0-4.3) K/uL [place] # (Auto) (0.0-0.8) K/uL Eos # (Auto) (0.0-0.7) K/uL Baso # (Auto) (0.0-0.2) K/uL Neutrophils % (Manual) (50-75) % Band Neutrophils % (0-2) % Lymphocytes % (Manual) (20-40) % Monocytes % (Manual) (0-10) % Platelet Estimate (NORMAL) RBC Morphology PT (9.7-12.2) SECONDS INR APTT (21-34) SECONDS Sodium (132-148) mmol/L Potassium (3.6-5.2) mmol/L Chloride (98-107) mmol/L Carbon Dioxide (22-30) mmol/L Anion Gap (10-20) BUN (9-20) mg/dL Creatinine (0.8-1.5) mg/dL Est GFR ( Amer) Est GFR (Non-Af Amer) Random Glucose (75-110) mg/dL Calcium (8.6-10.4) mg/dl Phosphorus (2.5-4.5) mg/dL Magnesium (1.6-2.3) mg/dL Total Bilirubin (0.2-1.3) mg/dL AST (17-59) U/L ALT (21-72) U/L Alkaline Phosphatase (38-126) U/L Total Protein (6.3-8.3) g/dL Albumin (3.5-5.0) g/dL Globulin (2.2-3.9) gm/dL Albumin/Globulin Ratio (1.0-2.1) Lipase (23-300) U/L Urine Color Allie (YELLOW) Urine Clarity Clear (Clear) Urine pH 6.0 (5.0-8.0) Ur Specific [place] 1.010 (1.003-1.030) Urine Protein 1+ H (NEGATIVE) mg/dL Urine Glucose (UA) Normal (Normal) mg/dL Urine Ketones Negative (NEGATIVE) mg/dL Urine Blood 1+ H (NEGATIVE) Urine Nitrate Negative (NEGATIVE) Urine Bilirubin Negative (NEGATIVE) Urine Urobilinogen 4.0 (0.2-1.0) mg/dL Ur Leukocyte Esterase Neg (Negative) Tabatha/uL Urine WBC (Auto) 5 (0-5) /hpf Urine RBC (Auto) 16 H (0-3) /hpf Ur Squamous Epith Cells 1 (0-5) /hpf Urine Bacteria Rare (<OCC) Blood Type A POSITIVE Blood Type Confirm A POSITIVE Antibody Screen Negative 07/20/17 07/20/17 07/20/17 Range/Units 17:29 14:54 14:54 WBC 13.7 H (4.8-10.8) K/uL RBC 4.69 (4.40-5.90) Mil/uL Hgb 15.0 (12.0-18.0) g/dL Hct 42.4 (35.0-51.0) % MCV 90.5 (80.0-94.0) fL MCH 32.0 H (27.0-31.0) pg MCHC 35.4 (33.0-37.0) g/dL RDW 13.5 (11.5-14.5) % Plt Count 257 (130-400) K/uL MPV 7.9 (7.2-11.7) fL Neut % (Auto) 84.9 H (50.0-75.0) % Lymph % (Auto) 5.9 L (20.0-40.0) % [place] % (Auto) 8.7 (0.0-10.0) % Eos % (Auto) 0.2 (0.0-4.0) % Baso % (Auto) 0.3 (0.0-2.0) % Neut # (Auto) 11.6 H (1.8-7.0) K/uL Lymph # (Auto) 0.8 L (1.0-4.3) K/uL [place] # (Auto) 1.2 H (0.0-0.8) K/uL Eos # (Auto) 0.0 (0.0-0.7) K/uL Baso # (Auto) 0.0 (0.0-0.2) K/uL Neutrophils % (Manual) 82 H (50-75) % Band Neutrophils % (0-2) % Lymphocytes % (Manual) 7 L (20-40) % Monocytes % (Manual) 11 H (0-10) % Platelet Estimate Normal (NORMAL) RBC Morphology Normal PT 15.2 H (9.7-12.2) SECONDS INR 1.4 APTT 29 (21-34) SECONDS Sodium 136 (132-148) mmol/L Potassium 3.8 (3.6-5.2) mmol/L Chloride 92 L (98-107) mmol/L Carbon Dioxide 30 (22-30) mmol/L Anion Gap 18 (10-20) BUN 9 (9-20) mg/dL Creatinine 1.1 (0.8-1.5) mg/dL Est GFR ( Amer) > 60 Est GFR (Non-Af Amer) > 60 Random Glucose 128 H (75-110) mg/dL Calcium 9.5 (8.6-10.4) mg/dl Phosphorus (2.5-4.5) mg/dL Magnesium (1.6-2.3) mg/dL Total Bilirubin 2.5 H (0.2-1.3) mg/dL AST 19 (17-59) U/L ALT 22 (21-72) U/L Alkaline Phosphatase 66 (38-126) U/L Total Protein 7.8 (6.3-8.3) g/dL Albumin 4.5 (3.5-5.0) g/dL Globulin 3.3 (2.2-3.9) gm/dL Albumin/Globulin Ratio 1.4 (1.0-2.1) Lipase 35 (23-300) U/L Urine Color (YELLOW) Urine Clarity (Clear) Urine pH (5.0-8.0) Ur Specific [place] (1.003-1.030) Urine Protein (NEGATIVE) mg/dL Urine Glucose (UA) (Normal) mg/dL Urine Ketones (NEGATIVE) mg/dL Urine Blood (NEGATIVE) Urine Nitrate (NEGATIVE) Urine Bilirubin (NEGATIVE) Urine Urobilinogen (0.2-1.0) mg/dL Ur Leukocyte Esterase (Negative) Tabatha/uL Urine WBC (Auto) (0-5) /hpf Urine RBC (Auto) (0-3) /hpf Ur Squamous Epith Cells (0-5) /hpf Urine Bacteria (<OCC) Blood Type Blood Type Confirm Antibody Screen Laboratory Results - last 24 hr 07/20/17 07/20/17 07/20/17 14:54 14:54 17:29 WBC 13.7 H RBC 4.69 Hgb 15.0 Hct 42.4 MCV 90.5 MCH 32.0 H MCHC 35.4 RDW 13.5 Plt Count 257 MPV 7.9 Neut % (Auto) 84.9 H Lymph % (Auto) 5.9 L [place] % (Auto) 8.7 Eos % (Auto) 0.2 Baso % (Auto) 0.3 Neut # (Auto) 11.6 H Lymph # (Auto) 0.8 L [place] # (Auto) 1.2 H Eos # (Auto) 0.0 Baso # (Auto) 0.0 Neutrophils % (Manual) 82 H Band Neutrophils % Lymphocytes % (Manual) 7 L Monocytes % (Manual) 11 H Platelet Estimate Normal RBC Morphology Normal PT 15.2 H INR 1.4 APTT 29 Sodium 136 Potassium 3.8 Chloride 92 L Carbon Dioxide 30 Anion Gap 18 BUN 9 Creatinine 1.1 Est GFR ( Amer) > 60 Est GFR (Non-Af Amer) > 60 Random Glucose 128 H Calcium 9.5 Phosphorus Magnesium Total Bilirubin 2.5 H AST 19 ALT 22 Alkaline Phosphatase 66 Total Protein 7.8 Albumin 4.5 Globulin 3.3 Albumin/Globulin Ratio 1.4 Lipase 35 Urine Color Urine Clarity Urine pH Ur Specific [place] Urine Protein Urine Glucose (UA) Urine Ketones Urine Blood Urine Nitrate Urine Bilirubin Urine Urobilinogen Ur Leukocyte Esterase Urine WBC (Auto) Urine RBC (Auto) Ur Squamous Epith Cells Urine Bacteria Blood Type Blood Type Confirm Antibody Screen 07/20/17 07/20/17 07/20/17 17:29 18:13 22:00 WBC 14.5 H RBC 3.74 L Hgb 11.5 L D Hct 34.2 L MCV 91.6 MCH 30.8 MCHC 33.6 RDW 13.4 Plt Count 259 MPV 8.1 Neut % (Auto) Lymph % (Auto) [place] % (Auto) Eos % (Auto) Baso % (Auto) Neut # (Auto) Lymph # (Auto) [place] # (Auto) Eos # (Auto) Baso # (Auto) Neutrophils % (Manual) Band Neutrophils % Lymphocytes % (Manual) Monocytes % (Manual) Platelet Estimate RBC Morphology PT INR APTT Sodium Potassium Chloride Carbon Dioxide Anion Gap BUN Creatinine Est GFR ( Amer) Est GFR (Non-Af Amer) Random Glucose Calcium Phosphorus Magnesium Total Bilirubin AST ALT Alkaline Phosphatase Total Protein Albumin Globulin Albumin/Globulin Ratio Lipase Urine Color Allie Urine Clarity Clear Urine pH 6.0 Ur Specific [place] 1.010 Urine Protein 1+ H Urine Glucose (UA) Normal Urine Ketones Negative Urine Blood 1+ H Urine Nitrate Negative Urine Bilirubin Negative Urine Urobilinogen 4.0 Ur Leukocyte Esterase Neg Urine WBC (Auto) 5 Urine RBC (Auto) 16 H Ur Squamous Epith Cells 1 Urine Bacteria Rare Blood Type A POSITIVE Blood Type Confirm A POSITIVE Antibody Screen Negative 07/21/17 07/21/17 07/21/17 06:11 06:12 06:12 WBC 10.6 RBC 3.54 L Hgb 11.0 L Hct 32.2 L MCV 90.8 MCH 31.0 MCHC 34.2 RDW 13.9 Plt Count 201 MPV 8.3 Neut % (Auto) 84.8 H Lymph % (Auto) 3.8 L [place] % (Auto) 11.2 H Eos % (Auto) 0.0 Baso % (Auto) 0.2 Neut # (Auto) 9.0 H Lymph # (Auto) 0.4 L [place] # (Auto) 1.2 H Eos # (Auto) 0.0 Baso # (Auto) 0.0 Neutrophils % (Manual) 86 H Band Neutrophils % 5 H Lymphocytes % (Manual) 2 L Monocytes % (Manual) 7 Platelet Estimate Normal RBC Morphology Normal PT INR APTT Sodium 135 Potassium 4.0 Chloride 99 Carbon Dioxide 25 Anion Gap 15 BUN 12 Creatinine 1.0 Est GFR ( Amer) > 60 Est GFR (Non-Af Amer) > 60 Random Glucose 167 H Calcium 7.6 L Phosphorus 3.0 Magnesium 1.5 L Total Bilirubin 7.4 H AST 17 ALT 25 Alkaline Phosphatase 40 Total Protein 6.0 L Albumin 3.2 L D Globulin 2.7 Albumin/Globulin Ratio 1.2 Lipase Urine Color Urine Clarity Urine pH Ur Specific [place] Urine Protein Urine Glucose (UA) Urine Ketones Urine Blood Urine Nitrate Urine Bilirubin Urine Urobilinogen Ur Leukocyte Esterase Urine WBC (Auto) Urine RBC (Auto) Ur Squamous Epith Cells Urine Bacteria Blood Type Blood Type Confirm Antibody Screen EKG/Cardiology Studies: Cardiology / EKG Studies 07/20/17 16:45 ELECTROCARDIOGRAM Stat Comment: HW1 Mode Of Transportation: BED Reason For Exam: PREOP 07/20/17 23:45 EKG [ELECTROCARDIOGRAM] Stat Comment: Mode Of Transportation: Reason For Exam: chest pain s/p OR Critical Care Progress Note - Nutrition Nutrition: Nutrition Category Date Time Status Liquid Diet [DIET] Diets 07/21/17 Breakfast Active Assessment/Plan - Assessment and Plan (Free Text) Assessment: This is a 37 year old male with no significant PMHx who presented with n/v/d and abdominal pain found to have gangrenous ruptured acute appendicitis s/p lap appy 07/20. Immediately post op patient went into shock became hypotensive, KAMAR drain had 2-300 CC BRB. He was given 2L bolus and transfused total 2 PRBCs and 2FFP. He was brought back to OR for diagnostic/exploratory ex lap- evacuation of hematoma on 07/21/17. Plan: Gangrenous ruptured acute appendicitis s/p lap appy 07/20 S/P diagnostic/exploratory lap- evacuation of hematoma on 07/21/17 - Continue IVF, Zosyn, pain management, ATAD Morbid Obesity - Counselled on diet, exercise, and weight loss Disposition: Patient transferred to Med/ Surg. DW Rula Negron DO, PGY-1 <Doug Galvin - Last Filed: 07/21/17 19:11> CCU Objective - Vital Signs / Intake & Output Vital Signs (Last 4 hours): Vital Signs Temp Pulse Resp BP Pulse Ox 07/21/17 18:07 98.6 F 115 H 20 120/78 96 07/21/17 15:51 99 07/21/17 15:33 98.2 F 117 H 22 108/69 90 L Intake and Output (Last 8hrs): Intake & Output 07/21/17 07/21/17 07/21/17 06:59 14:59 22:59 Intake Total 1940 950 Output Total 400 400 Balance 1540 550 Weight 281 lb 6 oz Intake: IV 550 Intake, IV Amount 550 750 Right Hand 550 750 Oral 240 200 Blood Product 600 Output: Urine 400 400 Urethral (Reeves) 400 Other: Voiding Method Indwelling Catheter - Medications Active Medications: Active Medications Generic Name Dose Route Start Last Admin Trade Name Freq PRN Reason Stop Dose Admin Docusate Sodium 100 mg 07/21/17 10:00 07/21/17 17:56 Colace PO 100 mg TID PARESH Administration Hydromorphone HCl 1 mg 07/20/17 17:41 07/21/17 16:55 Dilaudid IVP 1 mg Q4H PRN Administration Pain, severe (8-10) Piperacillin Sod/Tazobactam 100 mls @ 200 mls/hr 07/20/17 17:45 07/21/17 17: 22 Sod 3.375 gm/ Sodium Chloride IVPB 200 mls/hr Q6H PARESH Administration Protocol Sodium Chloride 1,000 mls @ 150 mls/hr 07/20/17 17:45 07/21/17 14:23 Sodium Chloride 0.9% IV 150 mls/hr .Q6H40M PARESH Administration Lactated Ringer's 1,000 mls @ 999 mls/hr 07/21/17 18:28 07/21/17 18:46 Lactated Ringer's IV 07/21/17 19:28 999 mls/hr .Q1H1M ONE Administration Ondansetron HCl 4 mg 07/20/17 17:41 07/21/17 15:47 Zofran Inj IVP 4 mg Q4 PRN Administration Nausea/Vomiting Oxycodone/Acetaminophen 2 tab 07/21/17 14:00 07/21/17 14:52 Percocet 5/325 Mg Tab PO 07/24/17 14:01 2 tab Q4H PRN Administration Pain, moderate (4-7) Pantoprazole Sodium 40 mg 07/21/17 10:00 07/21/17 10:41 Protonix Inj IVP 40 mg DAILY PARESH Administration - Patient Studies Lab Studies: Microbiology Studies 07/20/17 18:13 Urine Culture - Preliminary Urine No growth. Lab Studies 07/21/17 07/21/17 07/21/17 Range/Units 18:46 17:03 06:12 WBC 10.9 H (4.8-10.8) K/uL RBC 3.13 L (4.40-5.90) Mil/uL Hgb 9.9 L (12.0-18.0) g/dL Hct 28.1 L (35.0-51.0) % MCV 89.9 (80.0-94.0) fL MCH 31.5 H (27.0-31.0) pg MCHC 35.1 (33.0-37.0) g/dL RDW 13.8 (11.5-14.5) % Plt Count 220 (130-400) K/uL MPV 8.0 (7.2-11.7) fL Neut % (Auto) 79.1 H (50.0-75.0) % Lymph % (Auto) 7.1 L (20.0-40.0) % [place] % (Auto) 13.6 H (0.0-10.0) % Eos % (Auto) 0.1 (0.0-4.0) % Baso % (Auto) 0.1 (0.0-2.0) % Neut # (Auto) 8.6 H (1.8-7.0) K/uL Lymph # (Auto) 0.8 L (1.0-4.3) K/uL [place] # (Auto) 1.5 H (0.0-0.8) K/uL Eos # (Auto) 0.0 (0.0-0.7) K/uL Baso # (Auto) 0.0 (0.0-0.2) K/uL Neutrophils % (Manual) (50-75) % Band Neutrophils % (0-2) % Lymphocytes % (Manual) (20-40) % Monocytes % (Manual) (0-10) % Platelet Estimate (NORMAL) RBC Morphology Sodium (132-148) mmol/L Potassium (3.6-5.2) mmol/L Chloride (98-107) mmol/L Carbon Dioxide (22-30) mmol/L Anion Gap (10-20) BUN (9-20) mg/dL Creatinine (0.8-1.5) mg/dL Est GFR ( Amer) Est GFR (Non-Af Amer) POC Glucose (mg/dL) 125 H (65-110) mg/dL Random Glucose (75-110) mg/dL Calcium (8.6-10.4) mg/dl Phosphorus 3.0 (2.5-4.5) mg/dL Magnesium 1.5 L (1.6-2.3) mg/dL Total Bilirubin (0.2-1.3) mg/dL AST (17-59) U/L ALT (21-72) U/L Alkaline Phosphatase (38-126) U/L Total Protein (6.3-8.3) g/dL Albumin (3.5-5.0) g/dL Globulin (2.2-3.9) gm/dL Albumin/Globulin Ratio (1.0-2.1) Blood Type Blood Type Confirm Antibody Screen 07/21/17 07/21/17 07/20/17 Range/Units 06:12 06:11 22:00 WBC 10.6 14.5 H (4.8-10.8) K/uL RBC 3.54 L 3.74 L (4.40-5.90) Mil/uL Hgb 11.0 L 11.5 L D (12.0-18.0) g/dL Hct 32.2 L 34.2 L (35.0-51.0) % MCV 90.8 91.6 (80.0-94.0) fL MCH 31.0 30.8 (27.0-31.0) pg MCHC 34.2 33.6 (33.0-37.0) g/dL RDW 13.9 13.4 (11.5-14.5) % Plt Count 201 259 (130-400) K/uL MPV 8.3 8.1 (7.2-11.7) fL Neut % (Auto) 84.8 H (50.0-75.0) % Lymph % (Auto) 3.8 L (20.0-40.0) % [place] % (Auto) 11.2 H (0.0-10.0) % Eos % (Auto) 0.0 (0.0-4.0) % Baso % (Auto) 0.2 (0.0-2.0) % Neut # (Auto) 9.0 H (1.8-7.0) K/uL Lymph # (Auto) 0.4 L (1.0-4.3) K/uL [place] # (Auto) 1.2 H (0.0-0.8) K/uL Eos # (Auto) 0.0 (0.0-0.7) K/uL Baso # (Auto) 0.0 (0.0-0.2) K/uL Neutrophils % (Manual) 86 H (50-75) % Band Neutrophils % 5 H (0-2) % Lymphocytes % (Manual) 2 L (20-40) % Monocytes % (Manual) 7 (0-10) % Platelet Estimate Normal (NORMAL) RBC Morphology Normal Sodium 135 (132-148) mmol/L Potassium 4.0 (3.6-5.2) mmol/L Chloride 99 (98-107) mmol/L Carbon Dioxide 25 (22-30) mmol/L Anion Gap 15 (10-20) BUN 12 (9-20) mg/dL Creatinine 1.0 (0.8-1.5) mg/dL Est GFR ( Amer) > 60 Est GFR (Non-Af Amer) > 60 POC Glucose (mg/dL) (65-110) mg/dL Random Glucose 167 H (75-110) mg/dL Calcium 7.6 L (8.6-10.4) mg/dl Phosphorus (2.5-4.5) mg/dL Magnesium (1.6-2.3) mg/dL Total Bilirubin 7.4 H (0.2-1.3) mg/dL AST 17 (17-59) U/L ALT 25 (21-72) U/L Alkaline Phosphatase 40 (38-126) U/L Total Protein 6.0 L (6.3-8.3) g/dL Albumin 3.2 L D (3.5-5.0) g/dL Globulin 2.7 (2.2-3.9) gm/dL Albumin/Globulin Ratio 1.2 (1.0-2.1) Blood Type Blood Type Confirm Antibody Screen 07/20/17 Range/Units 17:29 WBC (4.8-10.8) K/uL RBC (4.40-5.90) Mil/uL Hgb (12.0-18.0) g/dL Hct (35.0-51.0) % MCV (80.0-94.0) fL MCH (27.0-31.0) pg MCHC (33.0-37.0) g/dL RDW (11.5-14.5) % Plt Count (130-400) K/uL MPV (7.2-11.7) fL Neut % (Auto) (50.0-75.0) % Lymph % (Auto) (20.0-40.0) % [place] % (Auto) (0.0-10.0) % Eos % (Auto) (0.0-4.0) % Baso % (Auto) (0.0-2.0) % Neut # (Auto) (1.8-7.0) K/uL Lymph # (Auto) (1.0-4.3) K/uL [place] # (Auto) (0.0-0.8) K/uL Eos # (Auto) (0.0-0.7) K/uL Baso # (Auto) (0.0-0.2) K/uL Neutrophils % (Manual) (50-75) % Band Neutrophils % (0-2) % Lymphocytes % (Manual) (20-40) % Monocytes % (Manual) (0-10) % Platelet Estimate (NORMAL) RBC Morphology Sodium (132-148) mmol/L Potassium (3.6-5.2) mmol/L Chloride (98-107) mmol/L Carbon Dioxide (22-30) mmol/L Anion Gap (10-20) BUN (9-20) mg/dL Creatinine (0.8-1.5) mg/dL Est GFR ( Amer) Est GFR (Non-Af Amer) POC Glucose (mg/dL) (65-110) mg/dL Random Glucose (75-110) mg/dL Calcium (8.6-10.4) mg/dl Phosphorus (2.5-4.5) mg/dL Magnesium (1.6-2.3) mg/dL Total Bilirubin (0.2-1.3) mg/dL AST (17-59) U/L ALT (21-72) U/L Alkaline Phosphatase (38-126) U/L Total Protein (6.3-8.3) g/dL Albumin (3.5-5.0) g/dL Globulin (2.2-3.9) gm/dL Albumin/Globulin Ratio (1.0-2.1) Blood Type A POSITIVE Blood Type Confirm A POSITIVE Antibody Screen Negative Laboratory Results - last 24 hr 07/20/17 07/20/17 07/21/17 17:29 22:00 06:11 WBC 14.5 H 10.6 RBC 3.74 L 3.54 L Hgb 11.5 L D 11.0 L Hct 34.2 L 32.2 L MCV 91.6 90.8 MCH 30.8 31.0 MCHC 33.6 34.2 RDW 13.4 13.9 Plt Count 259 201 MPV 8.1 8.3 Neut % (Auto) 84.8 H Lymph % (Auto) 3.8 L [place] % (Auto) 11.2 H Eos % (Auto) 0.0 Baso % (Auto) 0.2 Neut # (Auto) 9.0 H Lymph # (Auto) 0.4 L [place] # (Auto) 1.2 H Eos # (Auto) 0.0 Baso # (Auto) 0.0 Neutrophils % (Manual) 86 H Band Neutrophils % 5 H Lymphocytes % (Manual) 2 L Monocytes % (Manual) 7 Platelet Estimate Normal RBC Morphology Normal Sodium Potassium Chloride Carbon Dioxide Anion Gap BUN Creatinine Est GFR ( Amer) Est GFR (Non-Af Amer) POC Glucose (mg/dL) Random Glucose Calcium Phosphorus Magnesium Total Bilirubin AST ALT Alkaline Phosphatase Total Protein Albumin Globulin Albumin/Globulin Ratio Blood Type A POSITIVE Blood Type Confirm A POSITIVE Antibody Screen Negative 07/21/17 07/21/17 07/21/17 06:12 06:12 17:03 WBC RBC Hgb Hct MCV MCH MCHC RDW Plt Count MPV Neut % (Auto) Lymph % (Auto) [place] % (Auto) Eos % (Auto) Baso % (Auto) Neut # (Auto) Lymph # (Auto) [place] # (Auto) Eos # (Auto) Baso # (Auto) Neutrophils % (Manual) Band Neutrophils % Lymphocytes % (Manual) Monocytes % (Manual) Platelet Estimate RBC Morphology Sodium 135 Potassium 4.0 Chloride 99 Carbon Dioxide 25 Anion Gap 15 BUN 12 Creatinine 1.0 Est GFR ( Amer) > 60 Est GFR (Non-Af Amer) > 60 POC Glucose (mg/dL) 125 H Random Glucose 167 H Calcium 7.6 L Phosphorus 3.0 Magnesium 1.5 L Total Bilirubin 7.4 H AST 17 ALT 25 Alkaline Phosphatase 40 Total Protein 6.0 L Albumin 3.2 L D Globulin 2.7 Albumin/Globulin Ratio 1.2 Blood Type Blood Type Confirm Antibody Screen 07/21/17 18:46 WBC 10.9 H RBC 3.13 L Hgb 9.9 L Hct 28.1 L MCV 89.9 MCH 31.5 H MCHC 35.1 RDW 13.8 Plt Count 220 MPV 8.0 Neut % (Auto) 79.1 H Lymph % (Auto) 7.1 L [place] % (Auto) 13.6 H Eos % (Auto) 0.1 Baso % (Auto) 0.1 Neut # (Auto) 8.6 H Lymph # (Auto) 0.8 L [place] # (Auto) 1.5 H Eos # (Auto) 0.0 Baso # (Auto) 0.0 Neutrophils % (Manual) Band Neutrophils % Lymphocytes % (Manual) Monocytes % (Manual) Platelet Estimate RBC Morphology Sodium Potassium Chloride Carbon Dioxide Anion Gap BUN Creatinine Est GFR ( Amer) Est GFR (Non-Af Amer) POC Glucose (mg/dL) Random Glucose Calcium Phosphorus Magnesium Total Bilirubin AST ALT Alkaline Phosphatase Total Protein Albumin Globulin Albumin/Globulin Ratio Blood Type Blood Type Confirm Antibody Screen EKG/Cardiology Studies: Cardiology / EKG Studies 07/20/17 23:45 EKG [ELECTROCARDIOGRAM] Stat Comment: Mode Of Transportation: Reason For Exam: chest pain s/p OR Critical Care Progress Note - Nutrition Nutrition: Nutrition Category Date Time Status Liquid Diet [DIET] Diets 07/21/17 Breakfast Active Attending/Attestation - Attestation I have personally seen and examined this patient.: Yes I have fully participated in the care of the patient.: Yes I have reviewed all pertinent clinical information: Yes Notes (Text): 07/21/17 19:10 Patient during the rounds examined. Comfortable. Resident notes reviewed Agree with the plan and examination. Will follow-up the patient
--- NOTE | 2017-07-21 09:55 | OP ---
PROCEDURE DATE: 07/20/2017 SURGEON: Carolyn Hernandez MD REFINER OPERATOR: Dr Faulkner ANESTHESIA: General, Dr. Moe. PREOPERATIVE DIAGNOSIS: Acute appendicitis. POSTOPERATIVE DIAGNOSIS: Gangrenous appendicitis with rupture. PROCEDURE: Laparoscopic appendectomy. DESCRIPTION OF OPERATION: With the patient in the supine position under adequate general anesthesia, the abdomen was prepped and draped in the usual sterile manner. Veress needle puncture was performed at the umbilicus with insufflation to 15 cm water pressure of CO2, and a 10-mm laparoscopic trocar was inserted via an infraumbilical incision. Under direct vision, 5 and 12-mm trocars were inserted in the left lower quadrant. The cecum was visualized. There was inflammatory mass noted medial to the cecum, and after gently freeing overlying small bowel loops and sigmoid colon, the appendix was visualized. It was acutely inflamed with gangrenous central portion, and a snyder large appendicolith was visualized. The appendix was carefully freed, and it was noted that the gangrenous portion extended almost to the cecum. The cecum was reached laterally from the right gutter allowing the cecum to be elevated, and the cecum was then divided using the Endo PAGE stapler just proximal to the area of the appendix using 2 intersecting staple lines to completely transect the cecum. Care was taken not to impinge on the ileocecal valve. The appendix was then placed in a specimen retrieval bag and removed via the 12-mm port site. The right lower quadrant and pelvis were irrigated and suctioned, and a 19-[place] Dev[place] drain was placed in the pelvis distal to the area of the cecum and brought out through the 12-mm port site. The port site was sutured at that point with a 0 Vicryl suture to fix the drain. All other incisions were closed with 4-0 Monocryl subcuticular sutures and Steri-Strips. Dry sterile dressings were applied. The patient tolerated the procedure well and transferred to the recovery room in stable condition. Estimated blood loss for the procedure was 20 mL. Carolyn Hernandez MD [facility]ITALFest[facility]
[2017-07-21] MEDS ORDERED: Magnesium Oxide 400 mg Tab UD PO SCH (10:00)
[2017-07-21] MEDS: Magnesium Sulfate 1 gm in D5W 1 GM/100 ML BAG IVPB SCH ×2 (10:41→11:34)
--- NOTE | 2017-07-21 10:50 | RAD ---
HISTORY: s/p post op COMPARISON: 07/20/2017. FINDINGS: LUNGS: The lungs are clear. PLEURA: There is blunting of the right costophrenic angle with a probable lamellar effusion, no pneumothorax apparent. CARDIOVASCULAR: Normal. OSSEOUS STRUCTURES: No significant abnormalities. VISUALIZED UPPER ABDOMEN: Normal. OTHER FINDINGS: There is persistent elevation of the right hemidiaphragm. IMPRESSION: Small right pleural effusion. No focal consolidation or pneumothorax.
[2017-07-21] MEDS ORDERED: Oxycodone/Acetaminophen 5/325 mg Tab PO PRN (13:34)
[2017-07-21] MEDS: Oxycodone/Acetaminophen 5/325 mg Tab PO PRN ×2 (14:52→23:55)
[2017-07-21] MEDS ORDERED: Lactated Ringer's 1,000 ML IV ONE (18:28)
[2017-07-21 18:55] LABS: BASO % 0.1 % (0.0-2.0); EOS % 0.1 % (0.0-4.0); HEMOGLOBIN 9.9 g/dL (12.0-18.0); LYMPH # 0.8 K/uL (1.0-4.3); LYMPH % 7.1 % (20.0-40.0); MEAN CELL VOLUME 89.9 fL (80.0-94.0); MEAN CORPUSCULAR HEMOGLOBIN 31.5 pg (27.0-31.0); MEAN CORPUSCULAR HGB CONC 35.1 g/dL (33.0-37.0); MONO # 1.5 K/uL (0.0-0.8); MONO % 13.6 % (0.0-10.0); NEUT # 8.6 K/uL (1.8-7.0); NEUT % 79.1 % (50.0-75.0); PLATELET COUNT 220 K/uL (130-400); RBC 3.13 Mil/uL (4.40-5.90); RED CELL DISTRIBUTION WIDTH 13.8 % (11.5-14.5); WHITE BLOOD COUNT 10.9 K/uL (4.8-10.8)
[2017-07-21 20:48] LABS: LYMPHOCYTE 9 % (20-40); MONOCYTE 13 % (0-10); TOTAL CELLS COUNTED 100
[2017-07-21 20:50] LABS: BANDS 16 % (0-2); BURR CELLS SLIGHT; HYPOCHROMIC SLIGHT; LARGE PLATELETS PRESENT; MICROCYTOSIS SLIGHT; NEUTROPHIL 62 % (50-75); PLATELET ESTIMATE NORMAL (NORMAL)
--- NOTE | 2017-07-21 23:23 | OP ---
PROCEDURE DATE: 07/21/2017 SURGEON: Carolyn Hernandez MD TRANSCRIBER: Dr. Faulkner. ANESTHESIA: General, Dr. Vásquez PREOPERATIVE DIAGNOSIS: Postoperative hemoperitoneum. POSTOPERATIVE DIAGNOSIS: Postoperative hemoperitoneum. PROCEDURE: Diagnostic laparoscopy, evacuation of hematoma. DESCRIPTION OF OPERATION: The patient was approximately 2 hours status post laparoscopic appendectomy, and it was noted by the recovery room nurses that he had excessive blood coming from the postoperative Devonte drain along with hypotension and tachycardia. In addition, there was a decrease in hemoglobin on repeat blood work. A total of over 500 mL of blood was noted to have been collected in the drains when the patient was taken back to the operating room. He was placed on the operating table in the supine position, anesthetized. The abdomen was prepped and draped in the usual sterile manner. The umbilical port site was reopened and a 10 mm laparoscopic trocar without a blade was bluntly placed via the previous port site and pneumoperitoneum was insufflated to 1500 cm water pressure of CO2. Upon placing the laparoscope, there was noted to be a large amount of clotted blood overlying the mid abdomen as well as the right gutter area and the pelvis. The 12-mm port site in the left lower quadrant was visualized. No bleeding was noted from that port site and that incision also was reopened and a 12-mm port was placed via that incision. The left lower quadrant 5-mm port site similarly was visualized and no bleeding was noted from that area. Approximately 500 mL of dark liquid blood was suctioned from the peritoneal cavity. A quantity of clot was mobilized and some was removed, but the area of the appendectomy was exposed, and the staple line was noted to be intact with no bleeding noted at that area. The right gutter was also visualized where the appendix has been mobilized previously and again no active bleeding was noted in this area. All liquid blood was suctioned and additional 500 mL of irrigation was used to visualize areas of possible bleeding and that too was suctioned with suctioned, and after a period of observation, no new bleeding was noted. There did not appear to be any new blood collecting. So, the pneumoperitoneum was released and the trocars were removed. The port sites were closed with Vicryl sutures and skin closed with 4-0 Monocryl subcuticular sutures and Steri-Strips. Dry sterile dressings were applied. The patient tolerated the procedure well and transferred to the ICU in stable condition. Blood loss for the procedure was 500 mL of old blood, which was suctioned from the abdomen. Carolyn Hernandez MD [facility]
[2017-07-22] MEDS: HYDROmorphone 1 mg/ml ISec IVP PRN ×3 (02:10→13:35)
[2017-07-22] MEDS: Sodium Chloride 0.9% 1,000 ML IV SCH ×4 (03:16→23:34)
[2017-07-22] MEDS: Piperacillin/Tazobact 3.375 GM in Sodium Chloride 100 ML IVPB SCH ×4 (04:58→23:45)
[2017-07-22 07:53] LABS: BASO # 0.1 K/uL (0.0-0.2); BASO % 0.6 % (0.0-2.0); EOS % 0.2 % (0.0-4.0); HEMOGLOBIN 9.4 g/dL (12.0-18.0); LYMPH # 0.5 K/uL (1.0-4.3); LYMPH % 5.3 % (20.0-40.0); MEAN CELL VOLUME 90.2 fL (80.0-94.0); MEAN CORPUSCULAR HEMOGLOBIN 31.9 pg (27.0-31.0); MEAN CORPUSCULAR HGB CONC 35.4 g/dL (33.0-37.0); MEAN PLATELET VOLUME 8.3 fL (7.2-11.7); MONO # 1.2 K/uL (0.0-0.8); MONO % 12.9 % (0.0-10.0); NEUT # 7.5 K/uL (1.8-7.0); PLATELET COUNT 214 K/uL (130-400); RBC 2.93 Mil/uL (4.40-5.90); RED CELL DISTRIBUTION WIDTH 14.1 % (11.5-14.5); WHITE BLOOD COUNT 9.2 K/uL (4.8-10.8)
[2017-07-22 08:00] LABS: ALB/GLOB RATIO 1.1 (1.0-2.1); ALBUMIN 3.1 g/dL (3.5-5.0); ALT/SGPT 24 U/L (21-72); AST/SGOT 17 U/L (17-59); BLOOD UREA NITROGEN 7 mg/dL (9-20); CALCIUM 8.4 mg/dl (8.6-10.4); GFR AFRICAN-AMERICAN > 60; GFR NON-AFRICAN AMERICAN > 60
[2017-07-22 09:01] LABS: BANDS 6 % (0-2); BASOPHIL 1 % (0-2); LYMPHOCYTE 5 % (20-40); MONOCYTE 12 % (0-10); NEUTROPHIL 76 % (50-75); PLATELET ESTIMATE NORMAL (NORMAL); TOTAL CELLS COUNTED 100
[2017-07-22 09:02] LABS: ANISOCYTOSIS SLIGHT; HYPOCHROMIC SLIGHT; OVALOCYTES SLIGHT; POIKILOCYTOSIS SLIGHT
--- NOTE | 2017-07-22 10:09 | CP.PCM.PN ---
Subjective - Date & Time of Evaluation Date of Evaluation: 07/22/17 Time of Evaluation: 07:00 - Subjective Subjective: General Surgery Progress note for Dr. Hernandez This 37M was seen and examined this Am at bedside no acute events to report overnight. He is tolerating full liquid diet and is apprehensive about trying a regular diet. He denies any fevers or chills overnight. He complains of generalized abdominal pain. We discussed importance of ambulation post op. Objective - Vital Signs/Intake and Output Vital Signs (last 24 hours): Temp Pulse Resp BP Pulse Ox 98.0 F 118 H 22 123/81 95 07/22/17 07:57 07/22/17 07:57 07/22/17 07:57 07/22/17 07:57 07/22/17 07:57 Intake and Output: 07/22/17 07/22/17 06:59 18:59 Intake Total 4050 Output Total 1200 Balance 2850 - Medications Medications: Current Medications Docusate Sodium (Colace) 100 mg PO TID [facility] Last Admin: 07/22/17 09:13 Dose: 100 mg Hydromorphone HCl (Dilaudid) 1 mg IVP Q4H PRN PRN Reason: Pain, severe (8-10) Last Admin: 07/22/17 08:11 Dose: 1 mg Piperacillin Sod/Tazobactam (Sod 3.375 gm/ Sodium Chloride) 100 mls @ 200 mls/ hr IVPB Q6H [facility] PRN Reason: Protocol Last Admin: 07/22/17 04:58 Dose: 200 mls/hr Sodium Chloride (Sodium Chloride 0.9%) 1,000 mls @ 150 mls/hr IV .Q6H40M [facility] Last Admin: 07/22/17 03:16 Dose: 150 mls/hr Ondansetron HCl (Zofran Inj) 4 mg IVP Q4 PRN PRN Reason: Nausea/Vomiting Last Admin: 07/22/17 09:10 Dose: 4 mg Oxycodone/Acetaminophen (Percocet 5/325 Mg Tab) 2 tab PO Q4H PRN PRN Reason: Pain, moderate (4-7) Stop: 07/24/17 14:01 Last Admin: 07/21/17 23:55 Dose: 2 tab Pantoprazole Sodium (Protonix Inj) 40 mg IVP DAILY [facility] Last Admin: 07/22/17 09:12 Dose: 40 mg - Labs Labs: 07/22/17 07:43 07/22/17 07:43 PT 15.2 SECONDS (9.7-12.2) H 07/20/17 17:29 INR 1.4 07/20/17 17:29 APTT 29 SECONDS (21-34) 07/20/17 17:29 - Constitutional Appears: Non-toxic, No Acute Distress - Head Exam Head Exam: ATRAUMATIC, NORMOCEPHALIC - Eye Exam Eye Exam: EOMI, Normal appearance - ENT Exam ENT Exam: Mucous Membranes Moist - Respiratory Exam Respiratory Exam: NORMAL BREATHING PATTERN - Cardiovascular Exam Cardiovascular Exam: +S1, +S2 - GI/Abdominal Exam GI & Abdominal Exam: Soft. absent: Distended, Firm, Guarding, Rigid Additional comments: Appropriately tender, dressing with sanguinous strike through removed this AM during rounds. Assessment and Plan - Assessment and Plan (Free Text) Assessment: 37M POD# 2 s/p lap appy Regular diet ambulate pain control ABX D/W Dr. David Hylton PGY2
[2017-07-22 15:39] VITALS: RESP 20
--- NOTE | 2017-07-22 18:24 | US ---
HISTORY: abd pain, elevated t.bili COMPARISON: None. TECHNIQUE: Sonographic evaluation of the right upper quadrant of the abdomen. FINDINGS: LIVER: Measures 20.6 cm in length. There is diffuse increased echogenicity of the liver parenchyma. No mass. No intrahepatic bile duct dilatation. GALLBLADDER: There are no gallstones, wall thickening or pericholecystic fluid. The sonographic Nuñez's sign is negative. COMMON BILE DUCT: Measures 5.0 mm. No stones. No dilatation. PANCREAS: Unremarkable as visualized. No mass. No ductal dilatation. RIGHT KIDNEY: Measures 12.1 cm in length. Normal echogenicity. There is a 7 mm nonobstructing stone in the upper pole. No hydronephrosis. AORTA: No aneurysmal dilatation. IVC: Unremarkable. OTHER FINDINGS: None . IMPRESSION: Mild hepatomegaly. Diffuse increased echogenicity in the liver may reflect hepatic steatosis however parenchymal infectious/ inflammatory etiologies cannot be entirely excluded. Clinical and laboratory correlation is advised. 7 mm nonobstructing stone in the upper pole of the right kidney. No hydronephrosis.
[2017-07-23 01:29] VITALS: BP 114/69; PULSE 107; TEMP 99.2; O2SAT 97
[2017-07-23] MEDS: HYDROmorphone 1 mg/ml ISec IVP PRN ×2 (01:49→09:01)
[2017-07-23] MEDS: Piperacillin/Tazobact 3.375 GM in Sodium Chloride 100 ML IVPB SCH ×2 (05:30→11:30)
[2017-07-23] MEDS: Sodium Chloride 0.9% 1,000 ML IV SCH ×2 (05:34→12:30)
[2017-07-23 06:36] LABS: BASO % 0.4 % (0.0-2.0); EOS # 0.2 K/uL (0.0-0.7); HEMOGLOBIN 9.2 g/dL (12.0-18.0); LYMPH # 0.7 K/uL (1.0-4.3); LYMPH % 8.4 % (20.0-40.0); MEAN CELL VOLUME 91.1 fL (80.0-94.0); MEAN CORPUSCULAR HEMOGLOBIN 31.4 pg (27.0-31.0); MEAN CORPUSCULAR HGB CONC 34.5 g/dL (33.0-37.0); MEAN PLATELET VOLUME 8.2 fL (7.2-11.7); MONO # 1.1 K/uL (0.0-0.8); MONO % 13.7 % (0.0-10.0); NEUT # 5.9 K/uL (1.8-7.0); NEUT % 75.5 % (50.0-75.0); PLATELET COUNT 290 K/uL (130-400); RBC 2.94 Mil/uL (4.40-5.90); RED CELL DISTRIBUTION WIDTH 14.1 % (11.5-14.5); WHITE BLOOD COUNT 7.8 K/uL (4.8-10.8)
[2017-07-23 06:43] LABS: ALBUMIN 3.1 g/dL (3.5-5.0); ALT/SGPT 21 U/L (21-72); AST/SGOT 20 U/L (17-59); BLOOD UREA NITROGEN 8 mg/dL (9-20); CALCIUM 8.7 mg/dl (8.6-10.4); GFR AFRICAN-AMERICAN > 60; GFR NON-AFRICAN AMERICAN > 60
[2017-07-23 10:45] LABS: EOSINOPHIL 3 % (0-4); LYMPHOCYTE 6 % (20-40); MONOCYTE 12 % (0-10); NEUTROPHIL 79 % (50-75); TOTAL CELLS COUNTED 100
[2017-07-23 10:46] LABS: PLATELET ESTIMATE NORMAL (NORMAL)
--- NOTE | 2017-07-23 16:06 | CP.PCM.DIS ---
Provider - Provider Date of Admission: 07/20/17 16:54 Attending physician: Carolyn Hernandez MD Time Spent in preparation of Discharge (in minutes): 35 Diagnosis - Discharge Diagnosis (1) Acute appendicitis Status: Resolved Hospital Course - Lab Results Lab Results: Micro Results 07/21/17 16:39 Naris MRSA Culture - Final MRSA NOT DETECTED 07/21/17 01:59 Nose MRSA Culture (Admit) - Final MRSA NOT DETECTED 07/20/17 18:13 Urine Urine Culture - Final No Growth (<1,000 CFU/ML) Most Recent Lab Values WBC 7.8 K/uL (4.8-10.8) 07/23/17 06:16 RBC 2.94 Mil/uL (4.40-5.90) L 07/23/17 06:16 Hgb 9.2 g/dL (12.0-18.0) L 07/23/17 06:16 Hct 26.8 % (35.0-51.0) L 07/23/17 06:16 MCV 91.1 fL (80.0-94.0) 07/23/17 06:16 MCH 31.4 pg (27.0-31.0) H 07/23/17 06:16 MCHC 34.5 g/dL (33.0-37.0) 07/23/17 06:16 RDW 14.1 % (11.5-14.5) 07/23/17 06:16 Plt Count 290 K/uL (130-400) 07/23/17 06:16 MPV 8.2 fL (7.2-11.7) 07/23/17 06:16 Neut % (Auto) 75.5 % (50.0-75.0) H 07/23/17 06:16 Lymph % (Auto) 8.4 % (20.0-40.0) L 07/23/17 06:16 [place] % (Auto) 13.7 % (0.0-10.0) H 07/23/17 06:16 Eos % (Auto) 2.0 % (0.0-4.0) 07/23/17 06:16 Baso % (Auto) 0.4 % (0.0-2.0) 07/23/17 06:16 Neut # (Auto) 5.9 K/uL (1.8-7.0) 07/23/17 06:16 Lymph # (Auto) 0.7 K/uL (1.0-4.3) L 07/23/17 06:16 [place] # (Auto) 1.1 K/uL (0.0-0.8) H 07/23/17 06:16 Eos # (Auto) 0.2 K/uL (0.0-0.7) 07/23/17 06:16 Baso # (Auto) 0.0 K/uL (0.0-0.2) 07/23/17 06:16 Neutrophils % (Manual) 79 % (50-75) H 07/23/17 06:16 Band Neutrophils % 6 % (0-2) H 07/22/17 07:43 Lymphocytes % (Manual) 6 % (20-40) L 07/23/17 06:16 Monocytes % (Manual) 12 % (0-10) H 07/23/17 06:16 Eosinophils % (Manual) 3 % (0-4) 07/23/17 06:16 Basophils % (Manual) 1 % (0-2) 07/22/17 07:43 Platelet Estimate Normal (NORMAL) 07/23/17 06:16 Large Platelets Present 07/21/17 18:46 RBC Morphology Normal 07/23/17 06:16 Hypochromasia (manual) Slight 07/22/17 07:43 Poikilocytosis (manual Slight 07/22/17 07:43 Anisocytosis (manual) Slight 07/22/17 07:43 Microcytosis (manual) Slight 07/21/17 18:46 Ovalocytes Slight 07/22/17 07:43 [place] Cells Slight 07/21/17 18:46 PT 15.2 SECONDS (9.7-12.2) H 07/20/17 17:29 INR 1.4 07/20/17 17:29 APTT 29 SECONDS (21-34) 07/20/17 17:29 Sodium 135 mmol/L (132-148) 07/23/17 06:16 Potassium 3.8 mmol/L (3.6-5.2) 07/23/17 06:16 Chloride 94 mmol/L (98-107) L 07/23/17 06:16 Carbon Dioxide 28 mmol/L (22-30) 07/23/17 06:16 Anion Gap 16 (10-20) 07/23/17 06:16 BUN 8 mg/dL (9-20) L 07/23/17 06:16 Creatinine 0.9 mg/dL (0.8-1.5) 07/23/17 06:16 Est GFR ( Amer) > 60 07/23/17 06:16 Est GFR (Non-Af Amer) > 60 07/23/17 06:16 POC Glucose (mg/dL) 125 mg/dL (65-110) H 07/21/17 17:03 Random Glucose 102 mg/dL (75-110) 07/23/17 06:16 Calcium 8.7 mg/dl (8.6-10.4) 07/23/17 06:16 Phosphorus 2.2 mg/dL (2.5-4.5) L 07/23/17 06:16 Magnesium 2.2 mg/dL (1.6-2.3) 07/23/17 06:16 Total Bilirubin 5.6 mg/dL (0.2-1.3) H 07/23/17 06:16 Direct Bilirubin 3.6 mg/dL (0.0-0.4) H 07/22/17 07:43 AST 20 U/L (17-59) 07/23/17 06:16 ALT 21 U/L (21-72) 07/23/17 06:16 Alkaline Phosphatase 60 U/L (38-126) 07/23/17 06:16 Total Protein 6.3 g/dL (6.3-8.3) 07/23/17 06:16 Albumin 3.1 g/dL (3.5-5.0) L 07/23/17 06:16 Globulin 3.1 gm/dL (2.2-3.9) 07/23/17 06:16 Albumin/Globulin Ratio 1.0 (1.0-2.1) 07/23/17 06:16 Lipase 35 U/L (23-300) 07/20/17 14:54 Urine Color Allie (YELLOW) 07/20/17 18:13 Urine Clarity Clear (Clear) 07/20/17 18:13 Urine pH 6.0 (5.0-8.0) 07/20/17 18:13 Ur Specific [place] 1.010 (1.003-1.030) 07/20/17 18:13 Urine Protein 1+ mg/dL (NEGATIVE) H 07/20/17 18:13 Urine Glucose (UA) Normal mg/dL (Normal) 07/20/17 18:13 Urine Ketones Negative mg/dL (NEGATIVE) 07/20/17 18:13 Urine Blood 1+ (NEGATIVE) H 18 18:13 Urine Nitrate Negative (NEGATIVE) 07/20/17 18:13 Urine Bilirubin Negative (NEGATIVE) 07/20/17 18:13 Urine Urobilinogen 4.0 mg/dL (0.2-1.0) 07/20/17 18:13 Ur Leukocyte Esterase Neg [place]/uL (Negative) 07/20/17 18:13 Urine WBC (Auto) 5 /hpf (0-5) 07/20/17 18:13 Urine RBC (Auto) 16 /hpf (0-3) H 07/20/17 18:13 Ur Squamous Epith Cells 1 /hpf (0-5) 07/20/17 18:13 Urine Bacteria Rare (<OCC) 07/20/17 18:13 Blood Type A POSITIVE 07/20/17 17:29 Blood Type Confirm A POSITIVE 07/20/17 17:29 Antibody Screen Negative 07/20/17 17:29 - Hospital Course Hospital Course: / Patient was admitted for abdominal pain he was taken to the OR for a laparoscopic appendectomy, the patient returned to the OR that night due to acute blood loss anemia no source was found, bleed resolved by time of surgery. Bleed likely due to port site. POD#1 and 2 the patient complained of abdominal pain and food intolerance. POD#2 pt noticed he appeared jaundiced, an abdominal US was ordered and was negative. On POD#3 the patient is tolerating diet passing gas an moving his bowels. Jaundice resolved, ambulating and comfortable and requesting to go home. Patient is in no need for acute surgical care and is clear for discharge. Discharge Exam - Head Exam Head Exam: ATRAUMATIC, NORMOCEPHALIC - Eye Exam Eye Exam: EOMI, Normal appearance - Respiratory Exam Respiratory Exam: NORMAL BREATHING PATTERN, UNREMARKABLE - Cardiovascular Exam Cardiovascular Exam: +S1, +S2 - GI/Abdominal Exam GI & Abdominal Exam: Soft. absent: Distended, Firm, Guarding, Hernia, Tenderness Additional comments: Abdominal wall echymoses - Neurological Exam Neurological exam: Alert, Oriented x3 - Psychiatric Exam Psychiatric exam: Normal Affect, Normal Mood - Skin Skin Exam: Dry, Intact Discharge Plan - Follow Up Plan Condition: STABLE Disposition: HOME/ ROUTINE Instructions: Appendicitis, Adult (DC), Appendectomy, Laparoscopic Surgery (DC) , Appendectomy, Laparoscopic Surgery Additional Instructions: Please take over the counter medication for pain alternating between ibuprofen and acetaminophen. You have dissolvable stitches do not remove surgical strips they will fall off in the shower. No heavy lifting over 20lbs for 4 weeks and over 40lbs for 8 weeks. If you develop new concerning symptoms call your PCP, Dr. Hernandez or go to the ED. Followup with Dr. Hernandez in 10-14 days call her office to make an appointment. You may return to work at any point.
--- NOTE | 2017-07-23 22:45 | CARD ---
APPROVED REPORT EKG Measurement Heart [id number] ME [id number] <Conclusion> Sinus tachycardia Otherwise normal ECG
--- NOTE | 2017-07-24 12:29 | CARD ---
APPROVED REPORT EKG Measurement Heart [id number] <Conclusion> Normal sinus rhythm Normal ECG
== END 2017-07-23 17:34 | disposition home or self-care (01) | DRG 341 ==
LOC: C.ER 13:39 → C.9E 16:54 → C.9I 07-21 01:54 → C.5S 07-21 14:46 → C.3T 07-22 22:27
PROVIDERS: ADMIT Specialist; ATTEND Specialist
PROC: 0W9G4ZZ Drainage of Peritoneal Cavity, Percutaneous Endoscopic Approach (ICD-10-PCS; 2017-07-21)
PROC: 0DTJ4ZZ Resection of Appendix, Percutaneous Endoscopic Approach (ICD-10-PCS; principal; 2017-07-21 12:30)
DX: K35.89 Other acute appendicitis (principal); K66.1 Hemoperitoneum; D62 Acute posthemorrhagic anemia; T81.10XA Postprocedural shock unspecified, initial encounter; Z87.891 Personal history of nicotine dependence